=== PATIENT | female | born 1960 | race Caucasian/White ===

== ENCOUNTER 2019-10-08 17:44 | Inpatient (IN) | payer MEDICARE, OTHER ==
[~2019-10-08] VITALS: Ht 175.3 cm; Wt 84.4 kg
[~2019-10-08 17:44] MED LIST: ABILIFY5 MG PO; ASPIRIN81 MG PO; ATORVASTATIN CA10 MG PO; BRINTELLIX20 MG PO; DOCUSIL100 MG PO; ISOSORBIDE DINI30 MG PO; KEPPRA1000 MG PO; MINIPRESS1 MG PO; NEURONTIN100 MG PO; PEPCID40 MG PO; SINGULAIR10 MG PO; TOPAMAX25 MG PO; TOPROL XL25 MG PO
--- OUTSIDE RECORDS SUMMARY | 2019-10-08 17:46 | XMS ---
PreManage Notification: MARIA EVANS Security Asset Administrator Events No recent Security Events currently on file CRITERIA MET - [facility] Guidelines - History of Sepsis Dx - PDMP CARE PROVIDERS Vy Escobedo Service Greeter/Wet Pan Operator 07/20/2019-Current PHONE: [phone] RANCHO HART PHONE: [phone] Josey Case or Oil Seal Assembler Current Jose Chen PHONE: [phone] Vy Escobedo Primary Care 07/20/2019-Current PHONE: [phone] MARION HOLLOWAY Primary Care Current PHONE: Unknown Guidelines Source: [facility] Soo Delacruz Guidelines Date: 12/04/2018 Care Coordination: Currently engaged in mental health services with [employer].\T\nbsp; Please contact [employer] with mental health concerns.\T\nbsp; [place]ena [place]: [phone]\T\nbsp; [place]: [phone] Additional care guidelines exist for the following facilities: [facility] ( 01/21/2018 ) Ruth VISIT COUNT (12 MO.) [address] Anthony Tila TOTAL 11 NOTE: Visits indicate total known visits. 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 - Allergy status to sulfonamides status - Epilepsy, unsp, not intractable, without status epilepticus 06/12/2019 12:06 [facility] TYPE: Emergency DIAGNOSES: - LOW BLOOD PRESSURE CHEST PAIN - Generalized abdominal pain 05/09/2019 11:05 [facility] TYPE: Emergency DIAGNOSES: - Unspecified convulsions - SEIZURE 04/10/2019 15:16 [facility] TYPE: Emergency DIAGNOSES: - Headache - TIA 03/26/2019 12:17 [facility] TYPE: Emergency DIAGNOSES: - Headache - HEADACHE BLURRED VISION 03/10/2019 10:45 [facility] TYPE: Emergency DIAGNOSES: - Epilepsy, unsp, intractable, without status epilepticus - SEIZURE 03/03/2019 10:36 [facility] [place] TYPE: Emergency DIAGNOSES: - SEIZURE - Unspecified convulsions 02/17/2019 23:09 [facility] [place] TYPE: Emergency DIAGNOSES: - chest pain - Other chest pain 01/07/2019 15:36 [facility] [place] TYPE: Emergency DIAGNOSES: - dizzy seizure - Chest pain, unspecified - Unspecified convulsions 12/03/2018 14:22 [facility] [place] TYPE: Emergency DIAGNOSES: - Oth symptoms and signs involving the circ and resp systems - Nausea with vomiting, unspecified - Epilepsy, unsp, not intractable, without status epilepticus - CHEST PAIN - Other chest pain - Migraine w/o aura, not intractable, w/o status migrainosus INPATIENT VISIT TRACKING (12 MO.) No inpatient visits to display in this time frame [email or web address]
[2019-10-08] MEDS ORDERED: MUPIROCIN22 GM TOP (17:54)
[2019-10-08] MEDS ORDERED: PRAZOSIN HCL5 MG PO (17:55)
[2019-10-08] MEDS ORDERED: AMOX TR-K CLV1 EAC1 PO (17:56)
--- NOTE | 2019-10-08 21:30 | NUR ---
PATIENT ADMISSION COMPLETED. PATIENT OREINTED TO FLOOR, ROOM, AND CALL LIGHT. PATIENT DENIES ANY PAIN OR NAUSEA. PATIENTS ASSESMENT COMPLETED. PATIENT HAS RIGHT BOOT THAT IS TO BE WORN. PATIENT IS ON 2L VIA NC. PATIENT DENIES ANY COMMENTS, QUESTIONS OR CONCERNS. NO NEEDS NOTED. CALL LIGHT IN REACH.
--- NOTE | 2019-10-08 21:50 | NUR ---
PATIENTS EVENING MEDICATIONS GIVEN PER ORDER. PATIENT PROVIDED WITH ICE WATER. NO FURTHER NEEDS NOTED. CALL LIGHT IN REACH.
--- NOTE | 2019-10-08 23:30 | NUR ---
PATIENT IS RESTING IN BED WITH EYES CLOSED, RR 16. CALL LIGHT IN REACH.
--- NOTE | 2019-10-09 00:45 | NUR ---
PATIENT IS RESTING IN BED WITH EYES CLOSED, RR 15. CALL LIGHT IN REACH. REPORT GIVEN TO STACIA KUNZ.
--- NOTE | 2019-10-09 02:38 | NUR ---
resting, eyes closed, O2 in place, IVF infusing, call light at bedside
--- NOTE | 2019-10-09 04:52 | NUR ---
Has slept off andon this shift. O2 2LNC, lungs dim at base, no sob with exertion. Up to br with assist and fww/ R leg brace in place. NO c/o pain. no n/v, no loose stools this shift. Turns self in bed, IVf infusing w/o problems
--- NOTE | 2019-10-09 05:32 | NUR ---
DR WICK NOTIFIED OF PTS 101.6 ORAL TEMP, NO NEW ORDERS RECEIVED. PT WILL RECEIVED TYLENOL PREVIOUSLY ORDEREED
--- NOTE | 2019-10-09 05:43 | NUR ---
lab here drawing blood, pt coop. Medicated with tylenol 650mg po temp 101.6, 4 bedcovers removed but 1, procedure explained, pt aware. O2 in place, IVf infusing w/o problems.
--- NOTE | 2019-10-09 06:40 | NUR ---
TEMP DOWN TO 99.4
--- NOTE | 2019-10-09 07:17 | NUR ---
PT RESTING IN SEMIFOWLERS POSITION IN BED. PT ALERT AND ORIENTED. CALL LIGHT AND H2O IN REACH. PT DENIES NEEDS OR CONCERNS. BEDSIDE REPORT RECEIVED FROM ZE PALOMO.
--- NOTE | 2019-10-09 08:52 | NUR ---
PT RESTING SUPINE IN BED PT ALERT AND ORIENTED. CALL LIGHT AND H2O IN REACH. PT ASSESSMENT COMPLETED AND AM ASSESSMENT COMPLETED. NO NEEDS OR CONCERNS VOICED.
--- NOTE | 2019-10-09 10:42 | NUR ---
PT RESTING IN SEMIFOWLERS POSITION IN BED. PT ALERT AND ORIENTED. CALL LIGHT AND H2O IN REACH. NO NEEDS OR CONCERNS VOICED.
[2019-10-09] MEDS ORDERED: ATORVASTATIN CA40 MG PO (11:28)
[2019-10-09] MEDS ORDERED: METFORMIN HCL500 MG PO (11:29)
[2019-10-09] MEDS ORDERED: PRAZOSIN HCL1 MG PO (11:32)
[2019-10-09] MEDS ORDERED: VENTOLIN HFA18 GM INH (11:34)
[2019-10-09] MEDS ORDERED: ASPIR 8181 MG PO (11:57)
[2019-10-09] MEDS ORDERED: TYLENOL325 MG PO (12:42)
[2019-10-09] MEDS ORDERED: NITROSTAT0.4 MG SL (12:45)
[2019-10-09] MEDS ORDERED: PERCOCET 5-3251 EACH PO (12:47)
[2019-10-09] MEDS ORDERED: TIZANIDINE HCL2 MG PO (12:49)
--- NOTE | 2019-10-09 12:53 | NUR ---
MED REC COMPLETE
--- NOTE | 2019-10-09 13:40 | NUR ---
PT SLEEPING, WILL FOLLOW UP AGAIN
--- NOTE | 2019-10-09 14:02 | NUR ---
PT RESTING IN SEMIFOWLERS POSITION IN BED. PT ALERT AND ORIENTED. ASSESSMENT COMPLETED. PT DNEIES PAIN, NAUSEA OR SOB. CALL LIGHT AND H2O IN REACH. NO NEEDS OR CONCERNS VOICED.
--- NOTE | 2019-10-09 14:49 | NUR ---
Spoke with Magda. She is resting. States she lives at [facility]. Uses a walker, wc, and walking boot. Has a service dog. States she has a brother who lives out of town. Uses 022l at facility. Would like to dc to [facility] when she discharges. States she has all the DME she needs at this time.
--- NOTE | 2019-10-09 15:09 | NUR ---
PT RESTING SUPINE IN BED ALERT AND ORIENTED. PT REPORTS 8/10 BACK PAIN. PT STATES THIS IS CHRONIC ACHING LOW BACK PAIN. PT REQEUSTED AND RECEIVED PRN PO ANALGESIC WELL A WARM PACK. CALL LIGHT AND H2O IN REACH. NO FURTHER NEEDS OR CONCERNS VOICED.
--- NOTE | 2019-10-09 17:08 | NUR ---
PT RESTING IN SEMIFOWLERS POSITION IN BED. PT ALERT AND ORIENTED. CBG CHECKED. CALL LIGHT AND H2O IN REACH. PT APPEARS TO BE IN NO ACUTE DISTRESS. PT DENIES PAIN, SOB OR NAUSEA. NO NEEDS OR CONCERNS VOICED.
--- NOTE | 2019-10-09 18:00 | NUR ---
TEMP 101.7 PATIENT GIVEN 650MG OF PO TYLENOL. CALL TO DR. NEVAREZ TO UPDATE. PATIENT RESTING IN BED REPORTS, "I FEEL COLD."
--- NOTE | 2019-10-09 18:58 | NUR ---
PT WAS ASSISTED UP FROM COMMODE AND HAD AN UNSTEADY GAIT GETTING BACK TO BED AND FELT WARM. TEMP TAKEN AND FOUND TO BE 102.2, PRN PO IBUPROFEN ADMINISTERED. DR VILLATORO NOTIFIED OF S/SX'S AND OF VS'S. NO NEW ORDERS.
--- NOTE | 2019-10-09 20:32 | NUR ---
VITALS AND I&OS DONE AND CHARTED. FRESH ICE WATER AND ICE PACKS GIVEN. BEDSIDE TABLE AND CALL LIGHT IN REACH.
--- NOTE | 2019-10-09 20:48 | NUR ---
ice to back of neck, repositioned in bed. Lower lip open area healing, On room air, Lungs dim at bases, no sob at this time. multiple bruising in different stages of healing over arms. red apost over ankles, Wears R walking ortho boot when up. Turn self in bed
--- NOTE | 2019-10-10 00:38 | NUR ---
Resting, O2 in place, no resp distress. no further temp or c/o pain or diabetic s/sx. 2 SL intact, call light at bedside
--- NOTE | 2019-10-10 01:49 | NUR ---
Up to bsc, voided large amount of urine and had a medium formed bm, Back to bed, 1PA. R ortho boot on when transferring, off now. Tolerated well, no sob noted. O2 2L NC. moist non productive cough noted too. Tolerated well. Back to bed, repositions self in bed, call light at bedside.
--- NOTE | 2019-10-10 02:47 | NUR ---
C/O H/A AND FEELING WARM T 99.3, MEDICATED WITH MOTRIN 400MG PO C/O 8/10 H/A AND BACK PAIN. 1 BED COVER REMOVED, ENCOURAGED TO USE IS, DECLINED AT THIST TIME SHE HAS A H/A. TOLERATING FLUIDS, NO N/V
--- NOTE | 2019-10-10 04:32 | NUR ---
RESTING, O2 2L NC IN PLACE, SL X2 INTACT. NO DISTRESS, CALL LIGHT AT BEDSIDE
--- NOTE | 2019-10-10 05:50 | NUR ---
Pt temp 100, Tylenol 650mg po given. ice to axillary area and back of neck. Room temp down from 75 to 70 degrees. 2 Bedcovers removed, covered iwth light sheet. procedure explained to pt. stated understanding
--- NOTE | 2019-10-10 06:07 | NUR ---
Pt has slept off and on, Temp has been fluctuating between 99.3 at begining of shift up to 100.0 , received Tylenol, covers removed and room temp decreaed to 70 from 75. Pt working on IS. Tolerating fluids well. Up to bsc with 1PA, wears R ortho boot. unsteady gait. no sob with exertion noted, dry non procuctive cough prsent. O2 2L NC chronic in place. Lungs dim at bases Received Motrin x1 per c/o back/richardson pain, effective. 2SL patent. Pt Alert and oriented. bruising over body healing, scab forming over r lower lip. No seizure
--- NOTE | 2019-10-10 06:23 | NUR ---
While getting up from commode, commode arm gives way. Obtains a skin tear to right thumb approximately 1.5 cm by 0.5 cm. Site cleansed with chloraprep and steristrips placed over site.
--- NOTE | 2019-10-10 07:24 | NUR ---
PT RESTING SUPINE IN BED EYES CLOSED AND RESPIRATIONS EVEN AND UNLABORED. CALL LIGHT AND H2O IN REACH. NO NEEDS OR CONCERNS VOICED. REPORT RECEIVED FROM ZE PALOMO.
--- NOTE | 2019-10-10 08:30 | NUR ---
PT SITTING UP IN CHAIR ALERT AND EATING BREAKFAST. AM ASSESSMENT COMPLETED AND AM MEDS ADMINISTERED. CALL LIGHT AND H2O IN REACH. PT REPORTED 7/10 CHRONIC BACK PAIN; PRN PO ANALGESIC ADMINISTERED PER PT REQUEST. NO FURTHER NEEDS OR CONCERNS VOICED. PT AFEBRILE AT THIS TIME TEMP 98.2.
--- NOTE | 2019-10-10 11:03 | NUR ---
PT REPORTS PAIN TO BACK; PRN PO TYLENOL ADMINISTERED PER PT REQEUST. PT IN TO SEE PATIENT. NO FURTHER NEEDS OR CONCERNS VOICED.
--- NOTE | 2019-10-10 11:55 | NUR ---
PT RESTING SUPINE IN BED EYES CLOSED AND RESPIRATIONS EVEN AND UNLABORED ON 2LPNC. PT APPEARS TO BE SLEEPING COMFORTABLY.
--- NOTE | 2019-10-10 15:30 | NUR ---
PT RESTING ON RIGHT LATERAL SIDE WITH RESPIRATIONS EVEN AND UNLABORED. PT REPORT FEELING CHILLED AND GENERALIZED ACHING. PRN PO IBUPROFEN ADMINISTERED -SEE EMAR. CALL LIGHT AND H2O IN REACH. PT DENIES FURTHER NEEDS OR CONCERNS. TEMP TAKEN PRIOR TO RARE/ENDANGERED SPECIES SPECIALIST AND WAS 102.7 ORAL. EXTRA BLANKETS REMOVED, ENCOURAGED PT TO DRINK MORE FLUIDS AND TO USE IS. DR NEVAREZ NOTIFIED OF PT'S S/SX'S, NO NEW ORDERS AT THIS TIME.
--- NOTE | 2019-10-10 16:15 | NUR ---
PT REPORTS INCREASED PAIN TO BACK. NO PRN ANALGESICS CURRENTLY AVAILABLE. DR NEVAREZ NOTIFIED. NEW ORDER FOR PRN PO OXYCODONE X1 DOSE NOW. NO FURTHER NEEDS OR CONCERNS VOICED.
--- NOTE | 2019-10-10 16:54 | NUR ---
Pt off floor at this time to imaging for xrays.
--- NOTE | 2019-10-10 17:22 | NUR ---
PT BACK TO ROOM FORM IMAGING BY WC. PT UP TO CHAIR WITH DINNER. ICE PACKS FOR COMFORT TO BILAT AXILLA. CBG CHECKED AND 1 UNIT SS INSULIN ADMINISTERED PER PT REQUEST. NO FURTHER NEEDS OR CONCERNS VOICED. FIELD INTERVIEWER IN COMPLETING VS'S.
--- NOTE | 2019-10-10 19:31 | NUR ---
pt used call light to ask for assistance to the restroom. JASPER November and myself assisted pt to BSC. David appiled as she was up to the BSC. pt did not need anything further at this time.
--- NOTE | 2019-10-10 21:00 | NUR ---
ASSESSMENT COMPLETE, SCHEDULED MEDS GIVEN (SEE EMAR). PRN MOTRIN ALSO GIVEN FOR GENERALIZED BACK PAIN. PT REORIENTED TO PLACE AND EVENTS. VSS, PT ON 2LNC. NO DISTRESS NOTED AT THIS TIME, PT INTERACTIVE WITH STAFF. NO FURTHER NEEDS, CALL LIGHT IN REACH.
--- NOTE | 2019-10-10 23:19 | NUR ---
PT RESTING IN BED WITH EYES CLOSED. RESPIRATIONS EVEN AND UNLABORED, NO DISTRESS OR SIGNS OF PAIN NOTED. RR WNL, 2LNC IN PLACE. CALL LIGHT IN REACH.
--- NOTE | 2019-10-11 00:40 | NUR ---
HELPED PT TO THE BSC AND BACK TO BED. BEDSIDE TABLE AND CALL LIGHT IN REACH.
--- NOTE | 2019-10-11 02:13 | NUR ---
PT RESTING IN BED WITH EYES CLOSED. 2LNC IN PLACE, RR EVEN AND UNLABORED. NO DISTRESS NOTED. CALL LIGHT IN REACH.
--- NOTE | 2019-10-11 04:29 | NUR ---
ASSESSMENT COMPLETE, NO NEW CHANGES OR CONCERNS. PT SITTING IN BED, STATION AGENT NOVEMBER ASSISTED WITH BOOST. PT REPORTS FEELING SOB, 2LNC IN PLACE. O2 SAT LOW TO MID 90'S, HR WNL. HOB REMAINS ELEVATED. PT REPORTS 8/10 PAIN, PRN OXYCODONE ADMINSITERED (SEE EMAR). NO CHANGE IN RIGHT TOE APPEARANCE. NO FURTHER NEEDS, CALL LIGHT IN REACH.
--- NOTE | 2019-10-11 05:31 | NUR ---
ASSISTED RESEARCH AND EVALUATION ANALYST TO CHANGE pt. pt REPORTED 10/10 HEADACHE, SLIGHT TEMPERATURE. GAVE PRN TYLENOL (SEE MAR). PRIMARY RN UPDATED. CALL LIGHT WITHIN REACH.
--- NOTE | 2019-10-11 06:05 | NUR ---
PT CALLED TO USE [place] [facility] [place] WAS VERY WEAK AND SLOW MOVING. SHE VOIDED 900MLS OF URINE AND IS NOW BACK IN BED. REMOVED L WRIST IV AND PLACED PRESSURE WITH GAUZE AND COBAN IN PLACE. PT TOLERATED CALL AND CATH TIP INTACT. PT DENIES FURTHER NEEDS, CALL LIGHT IS CLOSE.
--- NOTE | 2019-10-11 06:50 | NUR ---
oral temp readings varies from 102-103. axillary temp of 99.3. temporal temp of 100.6. dr burroughs made aware as well as made aware of 0530 axillary temp. prn motrin given. no new orders.
--- NOTE | 2019-10-11 07:15 | NUR ---
PT RESTING SUPINE IN BED EYES CLOSED AND RESPIRATIONS EVEN AND UNLABORED. PT APPEARS TO BE SLEEPING COMFORTABLY. PE KEVINIDE REPORT PT REMAINS FEBRILE. ICE PACKS APPLIED TO BILAT AXILLAS FOR COMFORT. CALL LIGHT AND H2O IN REACH. PT ALSO PROVIDED WITH ICE WATER AND ICED TEA PER REQUEST. NO FURTHER NEEDS OR CONCERNS VOICED.
--- NOTE | 2019-10-11 09:45 | NUR ---
DR CARLOS WAS IN TO DISCUSS NEED FOR OUTPATIENT APPOINTMENT TO COMPLETE A PARTIAL TOE AMPUTATION TO RIGHT SECOND TOE. PT APPEARED TO TAKE THIS NEWS WELL STATING "I DON'T MIND IF YOU JUST TAKE THE WHOLE TOE OFF". CALL LIGHT AND H2O IN REACH.
--- NOTE | 2019-10-11 11:05 | NUR ---
PT SITTING UP IN CHAIR WATCHING TV. CALL LIGHT AND H2O IN REACH. PT DENIES NEEDS OR CONCERNS.
--- NOTE | 2019-10-11 14:20 | NUR ---
pt reports increased sharp pain to left lateral upper thigh area, pt denies ingury, no diformity, redness or swelling noted to sight and cms at baseline with some neuropathy to bilat le's. Call light and h2o in reach. No further needs or concerns voiced.
--- NOTE | 2019-10-11 15:06 | NUR ---
Pt reports 10/10 sharp pain to outer left later thigh. Dr Smith was informed of this, new verbal order for norco 5/325mg q6prn pain was ordered in addition to oxycodone q12 that pt takes chronicaly for back pain. No further orders received. prn po norco x2 tabs administered per pt request. call light and h2o in reach. No further needs or concerns voiced.
--- NOTE | 2019-10-11 19:20 | NUR ---
SHIFT REPORT RECIEVED FROM NEEMA KUNZ. PT RESTING IN BED, EYES CLOSED. CALL LIGHT IN REACH.
--- NOTE | 2019-10-11 20:21 | NUR ---
WITH THE HELP OF JASPER LOPEZ WE HELPED PT TO THE BSC AND BACK TO BED. PT ASKED FOR PAIN MEDICATION. I INFORMED HER RN MARTHA. BEDSIDE TABLE AND CALL LIGHT IN REACH.
--- NOTE | 2019-10-11 21:34 | NUR ---
ASSESSMENT COMPLETED. SCHEDULED MEDS PROVIDED.LUNG SOUNDS DIMINISHED. TYLENOL PROVIDED FOR FEVER. PT HAVING CRAMPS IN LEFT THIGH. WARM BLANKET AND HEAT PACK PROVIDED. REPOSITIONED WITH PILLOWS. ICE WATER PROVIDED. IV CDI, WNL, FLUSHED WELL. RT IN ROOM. NO THER NEEDS, CALL LIGHT IN REACH.
--- NOTE | 2019-10-11 22:13 | NUR ---
NOTIFIED OF FEVER AND INTERVENTIONS.
--- NOTE | 2019-10-11 22:30 | NUR ---
PT RESTING IN BED, EYES CLOSED. RR 18, EVEN, UNLABORED. CALL LIGHT IN REACH.
--- NOTE | 2019-10-11 22:59 | NUR ---
IV ABX COMPLETE, PT NOW SALINE LOCKED. SITE WNL, PUMP CLEARED. PRIMARY RN MARTHA MADE AWARE. CALL LIGHT IN REACH.
--- NOTE | 2019-10-12 01:00 | NUR ---
PT RESTING IN BED, EYES CLOSED. RR 16, EVEN, UNLABORED. CALL LIGHT IN REACH.
--- NOTE | 2019-10-12 02:50 | NUR ---
PT CALLS TO USE BSC. PT ASKS FOR BREATHING TX, RT NOTIFIED. ASSESSMENT COMPLETED. LUNG SOUNDS COURSE. CMS INTACT. RT IN ROOM. NO OTHER NEEDS.
--- NOTE | 2019-10-12 04:05 | NUR ---
prn pain medication given for 8/10 generalized pain. no further needs, call light in reach. primary rn maribel made aware.
--- NOTE | 2019-10-12 04:56 | NUR ---
PT SLEPT OFF AND ON THIS SHIFT. PT HAS REQUIRED PAIN MANAGEMENT FOR GENERAL PAIN AND LEG PAIN. PT HAD AN EPISODE OF A LEG CRAMP IN RIGHT FEMUR. PT TOLERATED FWW TRAN[place] [facility] [place] SPO2 DECREASED TO 89% AFTER TRANSFER BUT PT RETURNED TO AN SPO2 IN THE 90s SHORTLY AFTER. LUNG SOUNDS COURSE. FEVER AND PAIN WELL CONTROLLED WITH PRN MEDS. IV CDI, WNL, FLUSHED WELL. PT TOLERATED NC AND IV MEDS WELL. CMS INTACT.
--- NOTE | 2019-10-12 04:56 | NUR ---
PT RESTING IN BED, EYES CLOSED. RR 18, EVEN, UNLABORED. CALL LIGHT IN REACH.
--- NOTE | 2019-10-12 06:14 | NUR ---
PT RESTING IN BED, EYES CLOSED. RR 16, EVEN, UNLABORED. NC @ 2L. CALL LIGHT IN REACH.
--- NOTE | 2019-10-12 06:38 | NUR ---
ADMINISTERED TYLENOL FOR LEG PAIN. VS TAKEN BY RE HUTCHINSON AND SHE NOTIFIED PRIMARY RN OF PT'S TEMP OF 102.8. PT HAS FRESH ICEWATER AT BEDSIDE AND DENIES FURTHER NEEDS. CALL LIGHT IS CLOSE.
--- NOTE | 2019-10-12 07:14 | NUR ---
Report received from ZE Mora. Pt resting on left lateral side eyes closed and respirations even and unlabored on 2lpnc. Call light and h2o in reach. Pt appears to be sleeping comfortably.
--- NOTE | 2019-10-12 08:54 | NUR ---
PT WAS UP TO BSC WITH ASSISTANCE FROM JASPER BARBA. PT BACK TO BED AND ASSESSMENT COMPLETED. PT REPORTS NAUSEA AND LEFT KNEE AND LEFT LATERAL THIGH PAIN 9/10 SHARP. PRN PO ANALGESIC, IV ZOFRAN AND AM MEDS ADMINISTERED PER PT REQEUST. CALL LIGHT AND H2O IN REACH. FRESH ICE WATER PROVIDED. PT DNEIES FURTHER NEEDS OR CONCERNS. PT WAS SATTING HIN HIGH 80'S ON 2LPNC SO WAS ENCOURAGED TO COUGH DEEP BREATH USE IS 10X PER HOUR AND O2 TITRATED UP TO 3LPNC. WILL CTM.
--- NOTE | 2019-10-12 11:47 | NUR ---
PT RESTING IN BED EYES CLSOED AND RESPIRATIONS EVEN AND UNLABORED ON 3LPNC. PT APPEARS TO BE SLEEPING COMFORTABLY. CALL LIGHT AND H2O IN REACH.
--- NOTE | 2019-10-12 14:06 | NUR ---
PT ALERT AND ORIENTED RESTING IN SEMIFOWLERS POSITION IN BED. PT ASSESSMENT COMPLETED. PT REPORTS INCREASED PAIN TO LEFT HIP AND KNEE. PT REQUESTED AND RECEIVED PRN PO ANALGESIC. PT AFEBRILE, VSS ON 3LPNC. FRESH ICE WATER AND CALL LIGHT IN REACH.
--- NOTE | 2019-10-12 14:49 | NUR ---
PATIENT REFUSED HER SHOWER 2 XS AND SAID SHE WASNT FEELING WELL RN NOTIFIED. PATIENT ISNT EATTING WELL. ICE WATER FILL CALL LIGHT IN REACH.
--- NOTE | 2019-10-12 17:20 | NUR ---
PT UP TO CHAIR WATCHING TV. PT REPORTS 9/10 PAIN TO LEFT HIP, L LNEE AND BACK. PRN PO ANALGESICS ADMINISTERED. PT REMAINS AFEBRILE AT 98.5 (O). CALL LIGHT AND H2O IN REACH. PT DENIES FURTHER NEEDS OR CONCERNS.
--- NOTE | 2019-10-12 18:33 | NUR ---
PATIENT REFUSED TO EAT DINNER AND SHE SAID SHE WOULD DRING HER ENSURE LATER . PATIEN SEEM TO BE VERY TIRED TO DAY REFUSED SHOWERS. FRESH WATER GIVEN CALL LIGHT IN REACH
--- NOTE | 2019-10-12 19:20 | NUR ---
DR WU NOTIFIED OF LOW BP OF 91/47, PER DR NEVAREZ, ALMA DELIA, RN WAS NOTIFIED OF NEED FOR REPEAT BP IN ONE HOUR AND TO NOTIFY DR NEVAREZ IF BE REMAINS BELOW CALL PARAMETERS.
--- NOTE | 2019-10-12 19:25 | NUR ---
BEDSIDE REPORT RECEIVED FROM ZE BETHEA. pt AWAKE, RESTING IN BED. 3L OXYGEN BY NC IN PLACE. CALL LIGHT IN REACH. BED ALARM ON.
--- NOTE | 2019-10-12 22:05 | NUR ---
ROUNDED CHARGE. PATIENT IS RESTING IN BED. PATIENT DENIES ANY NEEDS. CALL LIGHT IN REACH.
--- NOTE | 2019-10-12 22:14 | NUR ---
BLOOD SUGAR DONE AND CHARTED. INFORMED ZE MENDEZ OF RESULTS. PT NEEDS NOTHING AT THIS TIME. CALL LIGHT AND BEDSIDE TABLE IN REACH.
--- NOTE | 2019-10-12 23:12 | NUR ---
PT ALERT, REPORTED PAIN 8/10 IN HER LEFT LEG AND BACK. PRN NORCO 5/325 AND IBUPROFEN WAS GIVEN WHOLE WITH WATER. ASKED TO TURN BRIGHT LIGHT OFF.
--- NOTE | 2019-10-13 00:34 | NUR ---
USES CALL LIGHT APPROPRIATE.
--- NOTE | 2019-10-13 03:21 | NUR ---
pt resting with her yes closed. Appears comfortable.
--- NOTE | 2019-10-13 05:11 | NUR ---
Pt was helped to the bed side commode, urinated and had small BM. VSS WNL, afebrile. Reported pain 8/10 in he left leg and low back. PRN medication was given. Pt bacj to bed, was repositioned to her right side. Hot packs were provided by nurse Flynn. Dim light is on in the room, bed in low position, call light in reach.
--- NOTE | 2019-10-13 05:16 | NUR ---
Pt alert, coopertive with all cares. Used her call light appropriate. VSS WNL, afebrile. Had small BM at the end of the shift. Reported pain 8/10 twice during this shift. PRN medciations were given twice with a good relief. Resident on 3L of O2, maintaning SpO2 91%-92%, heart rate is regular,no edema noted, lungs sound course crackles bilateraly. No cough noted during this shift. Sputum specimen still neded.
--- NOTE | 2019-10-13 07:27 | NUR ---
REPORT RECEIVED FROM RORY, Ame. PT RESTING IN BED WITH EYES CLOSED RESPIRATIONS EVEN AND UNLABORED. O2 AT 3L BY NC IN PLACE. BED RAILS UP. BED ALARM ON. CALL LIGHT WITHIN REACH. PT ALLOWED TO REST.
--- NOTE | 2019-10-13 08:04 | NUR ---
MORNING ASSESSMENT AND MEDICATION DUE. 2PA, FWW UP TO COMODE. PT VOIDS AND HAS SMALL BM. 2PA, FWW UP TO CHAIR FOR BREAKFAST. ASSESSMENT DONE. PT REPORTS 8/10 PAIN AND CRIES OUT AT TIMES COMPLAINGING ABOUT LOWER BACK AND LEFT HIP. PT REFUSES TO STAY IN CHAIR FOR BREAKFAST. LUNG SOUNDS COURSE, RT TO BEDSIDE FOR BREATHING TX. PT ABLE TO COUGH BUT WILL NOT COUGH UP SPUTUTM FOR SAMPLE. RIGHT TOE UNCHANGED. O2 IN PLACE AT 3L BY NC WITH O2 SATURATION OF 93%. MEDICATION GIVEN. 2PA, FWW BACK TO BED. NO ADDITIONAL REQUESTS OR COMPLAINTS AT THIS TIME. CALL LIGHT WITHIN REACH. BED ALARM ON.
--- NOTE | 2019-10-13 08:10 | NUR ---
PATIENT USING THE BASE COMMODE. RN IN ROOM. PATIENT BACKS TO CHAIR. TWO PERSON ASSISTING. LINENS CHANGED. CLEAN UP TABLES. SETS UP TABLE FOR BREAKFAST. PATIENT SAID THAT MAYBE SHE WILL TAKE A SHOWER LATER. CALL LIGHT WITHIN REACH. NO OTHER NEEDS AT THIS TIME
--- NOTE | 2019-10-13 09:12 | NUR ---
PATIENT RESTING IN BED. VITAL SIGNS AND I&O DONE. CALL LIGHT WITHIN REACH. NO OTHER NEEDS AT THIS TIME
[2019-10-13] MEDS ORDERED: AMOX TR-K CLV1 EAC1 PO (09:25)
--- NOTE | 2019-10-13 09:39 | NUR ---
CALLED [facility] TO LET THEM KNOW THEY WILL NEED TO BE IN TOUCH WITH DR RODRIGUEZ OFFICE IN REGARDS TO PT HAVING HER TOE AMPUTATED NEXT SUNDAY.
--- NOTE | 2019-10-13 09:50 | NUR ---
Notified by staff, Magda is discharging today. She will need portable 02 to dc to home. Spoke with Les from [facility] and he will bring portable tank in and take pt home on discharge.
--- NOTE | 2019-10-13 10:13 | NUR ---
THIS RN TO ROOM TO CHECK ON PT. PT PREPARING CLOTHES TO GET DRESSED. PT CONTINUES TO REPORT 8/10 PAIN. PT IS MOVING MORE EASILY IN BED, NO CRINGES OR CYRING NOTED. SEE MAR FOR ADDITIONAL MEDICAITON GIVEN. BED RAILS UP. CALL LIGHT WITHIN REACH. BED ALARM ON.
--- NOTE | 2019-10-13 10:30 | NUR ---
PT UP TO GET DRESSED WITH ASSISTANCE FROM JASPER. PIV DC'D BY JASPER DEL [place], WNL. TALISHA AND JESSIE APPLIED. PT ANTICIPATING DISCHRAGE. AWAITING CASE MANAGMENT ARRANGEMENTS. PT RESTING IN BED. CALL LIGHT WITHIN REACH. BED ALARM ON.
--- NOTE | 2019-10-13 10:59 | NUR ---
IV TAKEN OUT UPON RN REQUEST. CATH INTACT AND LOOKED GOODM RN NOTIFIED.
--- NOTE | 2019-10-13 11:40 | NUR ---
REPORT CALLED TO DESIRE FOR HEALING. REPORT GIVEN TO LESS, NURSE PRACTITIONER. QUESTIONS ASKED AND ANSWERED.
--- NOTE | 2019-10-13 11:46 | NUR ---
PT READY FOR TRANFER. DISCHRAGE INSTRUCTIONS REVIEWED WITH PT. PT VERBALIZES UNDERSTANDING OF INSTRUCTIONS. REPORT CALLED AND PACKET PREPARED TO BE SENT WITH TRANSPORT [facility]. [facility] CALLED AND WILL COME TO CLERK TELEGRAPH SERVICE PT. PT UPDATED ON TRANFER. OFFERED LUNCH WHILE WAITING. LUNCH ORDER CALLED.
--- NOTE | 2019-10-13 12:19 | NUR ---
REPEAT BLOOD GLUCOSE AFTER EATING AND DRINKING SOME JUICE IS 67
--- NOTE | 2019-10-13 12:24 | NUR ---
PATIENT JUST DRANK ABOUT 150ML OF APPLE JUICE.
--- NOTE | 2019-10-13 12:30 | NUR ---
PTS BLOOD SUGAR NOTED TO BE LOW. 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 YANIRA RN TO BEDSIDE. JUICE PROVIDED. SUGARS RECHECKED. YANIRA AT BEDSIDE. PT SIPPING ON JUICE. NO ADDITIONAL REQUESTS OR COMPLAINTS AT THIS TIME. CALL LIGHT WITHIN REACH.
--- NOTE | 2019-10-13 12:31 | NUR ---
DR NEVAREZ NOTIFIED ABOUT LOW BLOOD GLUCOSE LEVEL.
--- NOTE | 2019-10-13 12:46 | NUR ---
BLOOD GLUCOSE READING NOW 96. CONTINUES TO EAT SOME OF HER PEANUT BUTTER AND JELLY SANDWICH.
--- NOTE | 2019-10-13 14:01 | NUR ---
PATIENT RESTING IN BED. VITAL SIGNS AND I&O DONE. PATIENT DID NOT VOID DURING THIS PERIOD. RN NOTIFIED. CALL LIGHT WITHIN REACH. NO OTHER NEEDS AT THIS TIME
--- NOTE | 2019-10-13 14:05 | NUR ---
THIS RN TO ROOM TO CHECK ON PT. PT RESTING IN BED WITH EYES CLOSED, RESPIRATIONS EVEN AND UNLABORED. BED RAILS UP. CALL LIGHT WITHIN REACH. CONTINUE AWAITING TRANPORT [facility] FOR DISCHARGE.
--- NOTE | 2019-10-13 14:40 | NUR ---
PT CONTINUES RESTING WITH EYES CLOSED, NO APPARENT DISTRESS, RESPIRATIONS EVEN AND UNLABORED. O2 IN PLACE AT 3L BY NC. BED RAILS UP. CALL LIGHT WITHIN REACH.
--- NOTE | 2019-10-13 15:34 | NUR ---
PATIENT WHEELED OUT FOR DC. WORKER FROM FACILITY HERE TO PICK PATIENT UP.
== END 2019-10-13 15:16 | disposition home or self-care (01) | DRG 193 ==
LOC: ED 17:44 → MS 20:17
PROVIDERS: ADMIT Student in an Organized Health Care Education/Training Program
DX: J13 Pneumonia due to Streptococcus pneumoniae (principal); J96.01 Acute respiratory failure with hypoxia; G93.41 Metabolic encephalopathy; M86.171 Other acute osteomyelitis, right ankle and foot; J15.4 Pneumonia due to other streptococci; F20.9 Schizophrenia, unspecified; J45.909 Unspecified asthma, uncomplicated; G40.909 Epilepsy, unspecified, not intractable, without status epilepticus; I10 Essential (primary) hypertension; E78.5 Hyperlipidemia, unspecified; F43.10 Post-traumatic stress disorder, unspecified; L03.031 Cellulitis of right toe; E11.69 Type 2 diabetes mellitus with other specified complication; E11.621 Type 2 diabetes mellitus with foot ulcer; L97.514 Non-pressure chronic ulcer of other part of right foot with necrosis of bone; Z79.84 Long term (current) use of oral hypoglycemic drugs; Z99.81 Dependence on supplemental oxygen; Z79.82 Long term (current) use of aspirin; Z79.899 Other long term (current) drug therapy; Z88.2 Allergy status to sulfonamides; Z88.8 Allergy status to other drugs, medicaments and biological substances; Z88.1 Allergy status to other antibiotic agents; Z88.5 Allergy status to narcotic agent; Z89.422 Acquired absence of other left toe(s); Z79.891 Long term (current) use of opiate analgesic
CPT/HCPCS: 36415; 70450; 71045; 71046; 73660; 80048; 80053; 81001; 83605; 83735; 84484; 85025; 87502; 94640; 94760; 96361; 96365; 96375; 97110; 97116; 97162; 97165; 97535; 99285-25; J0456; J0696; J1650; J1815; J1953; J2405; J3370; J7030; J7060; J7121

== ENCOUNTER 2019-10-14 23:47 | Observation (INO) | payer MEDICARE, OTHER ==
[~2019-10-14] VITALS: Ht 175.3 cm; Wt 84.1 kg
[~2019-10-14 23:47] MED LIST changes: +AMOX TR-K CLV1 EAC1 PO; +ASPIR 8181 MG PO; +ATORVASTATIN CA40 MG PO; +METFORMIN HCL500 MG PO; +MUPIROCIN22 GM TOP; +NITROSTAT0.4 MG SL; +PERCOCET 5-3251 EACH PO; +PRAZOSIN HCL1 MG PO; +PRAZOSIN HCL5 MG PO; +TIZANIDINE HCL2 MG PO; +TYLENOL325 MG PO; +VENTOLIN HFA18 GM INH
--- OUTSIDE RECORDS SUMMARY | 2019-10-14 23:50 | XMS ---
PreManage Notification: MARIA EVANS Security Medical Office Manager Events No recent Security Events currently on file CRITERIA MET - [facility] - Has Care Guidelines - History of Sepsis Dx - PDMP - [facility] - 2 Visits in 30 Days CARE PROVIDERS Vy Escobedo Manuscripts Archivist/Wet And Dry Sugar Bin Operator 07/20/2019-Current PHONE: [phone] RANCHO HART PHONE: [phone] Josey Case or Promotions Producer Current Jose Chen PHONE: [phone] Vy Escobedo Primary Care 07/20/2019-Current PHONE: [phone] MARION HOLLOWAY Primary Care Current PHONE: Unknown Guidelines Source: [facility] Guidelines Date: 12/04/2018 Care Coordination: Currently engaged in mental health services with [facility].\T\nbsp; Please contact [facility] with mental health concerns.\T\nbsp; [facility]: [phone]\T\nbsp; [place]: [phone] Additional care guidelines exist for the following facilities: [facility] ( 01/21/2018 ) Ruth VISIT COUNT (12 MO.) 9 [employer] [address] Anthony Tila TOTAL 12 NOTE: Visits indicate total known visits. ED/UCC VISIT TRACKING (12 MO.) 10/14/2019 23:47 [facility] TYPE: Emergency COMPLAINT: - R FOOT PAIN 10/08/2019 17:44 [facility] TYPE: Emergency COMPLAINT: - UNRESPONSIVE 07/12/2019 19:21 [facility] TYPE: Emergency COMPLAINT: - SEIZURE DIAGNOSES: - Other [place] [facility] (current) drug therapy - Unspecified asthma, uncomplicated - Personal history of nicotine dependence - Allergy status to other antibiotic agents status - Allergy status to oth drug/meds/biol subst status - terminal make up operator (current) use of aspirin - Allergy status to sulfonamides status - Epilepsy, unsp, not intractable, without status epilepticus 06/12/2019 12:06 [facility] [place] TYPE: Emergency DIAGNOSES: - LOW BLOOD PRESSURE CHEST PAIN - Generalized abdominal pain 05/09/2019 11:05 [facility] [place] TYPE: Emergency DIAGNOSES: - Unspecified convulsions - SEIZURE 04/10/2019 15:16 [facility] [place] TYPE: Emergency DIAGNOSES: - Headache - TIA 03/26/2019 12:17 [facility] OR TYPE: Emergency DIAGNOSES: - Headache - HEADACHE BLURRED VISION 03/10/2019 10:45 [facility] [place] TYPE: Emergency DIAGNOSES: - Epilepsy, unsp, intractable, without status epilepticus - SEIZURE 03/03/2019 10:36 [facility] [place] TYPE: Emergency DIAGNOSES: - SEIZURE - Unspecified convulsions 02/17/2019 23:09 [facility] [place] TYPE: Emergency DIAGNOSES: - chest pain - Other chest pain 01/07/2019 15:36 [facility] [place] TYPE: Emergency DIAGNOSES: - dizzy seizure - Chest pain, unspecified - Unspecified convulsions 12/03/2018 14:22 [facility] [place] TYPE: Emergency DIAGNOSES: - Oth symptoms and signs involving the circ and resp systems - Nausea with vomiting, unspecified - Epilepsy, unsp, not intractable, without status epilepticus - CHEST PAIN - Other chest pain - Migraine w/o aura, not intractable, w/o status migrainosus INPATIENT VISIT TRACKING (12 MO.) 10/08/2019 20:17 [facility] TYPE: [facility] COMPLAINT: - PNEUMONIA DIAGNOSES: - Dependence on supplemental oxygen - Unspecified asthma, uncomplicated - Pneumonia due to other streptococci - Post-traumatic stress disorder, unspecified - 1 Type 2 diabetes mellitus with foot ulcer - 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 - Acquired absence of other left toe(s) - Epilepsy, unsp, not intractable, without status epilepticus - Hyperlipidemia, unspecified - Pneumonia due to Streptococcus pneumoniae - Allergy status to other antibiotic agents status - 1 Type 2 diabetes mellitus with other specified complication - Other acute osteomyelitis, right ankle and foot - Pneumonia due to Streptococcus pneumoniae - Schizophrenia, unspecified - Essential (primary) hypertension - Allergy status to other antibiotic agents status - Other acute osteomyelitis, right ankle and foot - 1 Type 2 diabetes mellitus with foot ulcer - terminal make up operator (current) use of oral hypoglycemic drugs - assisted (current) use of opiate analgesic - Dependence on supplemental oxygen - assisted (current) use of oral hypoglycemic drugs - Acute respiratory failure with hypoxia - Post-traumatic stress disorder, unspecified - terminal make up operator (current) use of aspirin - Acquired absence of other left toe(s) - terminal make up operator (current) use of aspirin - Pneumonia due to other streptococci - Allergy status to sulfonamides status - Allergy status to sulfonamides status - Metabolic encephalopathy - Hyperlipidemia, unspecified - Essential (primary) hypertension - Allergy status to narcotic agent status - 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 - 1 Type 2 diabetes mellitus with other specified complication - Other watermaster (current) drug therapy - Allergy status to oth drug/meds/biol subst status - Schizophrenia, unspecified - [place] [facility] [place] (current) drug therapy - Allergy status to narcotic agent status - Epilepsy, unsp, not intractable, without status epilepticus - assisted (current) use of opiate analgesic - Allergy status to oth drug/meds/biol subst status - Unspecified asthma, uncomplicated - Cellulitis of right toe - Metabolic encephalopathy - Cellulitis of right toe [email or web address]
--- NOTE | 2019-10-15 01:59 | NUR ---
REPORT RECEIVED FROM ZE MONROE IN ED.
--- NOTE | 2019-10-15 02:30 | NUR ---
pt [facility]. TRANSFERRED TO HOSPITAL BED WITH NURSING STAFF ASSSIT. INCONTINENT OF STOOL. ATTENDS CHANGED. C/O PAIN IN LEFT LEG WITH MOVEMENT. WARM BLANKET PROVIDED. VSS ON 4L OXYGEN BY OXYMASK, CPOX ON. SINUS RHYTHM ON TELE 8. LUNG SOUNDS COARSE THROUGHOUT ALL LOBES. CALL LIGHT PROVIDED TO pt. BED ALARM ON.
--- NOTE | 2019-10-15 02:48 | NUR ---
PT ADMITTED TO ROOM 119 FROM ED. ABLE TO SCOOT SELF OVER TO BED FROM STRETCHER WITH MIMINAL ASSISTANCE, NOTED TO BE INCONT BM, UNKNOWN BY PT. ON 4 L O2, SHE STATES SHE USES AT HER LONG TERM. IS A/O, RECENTLY DISCHARGED FROM THIS HOSPITAL THIS WEEK. LIVES AT [facility]. BED ALARM PLACED UNTIL DETERMINED IF SHE IS AWARE OF HER SAFETY NEEDS. IV INFUSING PER ORDER.
--- NOTE | 2019-10-15 03:50 | NUR ---
PULSE OXIMETER ALARMING. SPO2 87% ON 4L OXYGEN BY OXYMASK. TITRATED TO 5L OXYGEN BY OXYMASK, SPO2 INCREASES TO 90% AFTER TWO MINUTES. RT RIA NOW IN ROOM FOR SCHEDULED NEB TREATMENT. BED ALARM ON. CALL LIGHT IN REACH.
--- NOTE | 2019-10-15 04:10 | NUR ---
pt TITRATED TO 4L OXYGEN BY OXYMASK BY RT. SPO2 92%. BED ALARM NOW SOUNDING, pt DENIES PAIN AT THIS TIME. APPEARS CONFUSED, NOT ABLE TO CORRECTLY ANSWER . REORIENTATION PROVIDED, REQUESTING TO SLEEP. STATES SURGERY IS "TOMORROW MORNING". BED ALARM ON.
--- NOTE | 2019-10-15 05:31 | NUR ---
NEW ADMIT THIS SHIFT. BRIDGE ORDERS. pt NPO, POSSIBLE AMPUTATION W DR. FLORES RIGHT SECOND TOE TODAY. 4L OXYGEN BY OXYMASK IN PLACE. CPOX IN PLACE. SCHEDULED NEB TREATMENTS. LUNG SOUNDS COARSE THROUGHOUT ALL LOBES. CONGESTED COUGH. NOT OUT OF BED THIS SHIFT. BED ALARM ON, SOME CONFUSION UPON AWAKENING. APPEARS TO HAVE RESTED WELL.
--- NOTE | 2019-10-15 06:02 | NUR ---
CALL LIGHT ANSWERED. pt ALERT AND ORIENTED TO ALL AT THIS TIME. 4L OXYGEN BY OXYMASK IN PLACE, SPO2 92%. 2PA TO BSC FOR VOID AND BACK TO BED. VSS. DENIES SOB. DENIES PAIN. CALL LIGHT IN REACH. BED ALARM ON. IVF INFUSING WNL ORDERED.
--- NOTE | 2019-10-15 08:30 | NUR ---
PT IS ALERT, SITTING UP IN BED, MAINTAINING OXIMETER 96% WITH O2 4L/OXYMASK, LUNGS ARE COARSE WITH OCCASIONAL LOOSE COUGH, ASKING WHEN CAN SHE EAT, REMAINS NPO AT THIS TIME.
--- NOTE | 2019-10-15 10:31 | NUR ---
DR JOSEPH IN TO SEE PT, NEW ORDERS NOTED, BREAKFAST ORDER PLACED FOR PT, SURGERY IS ON HOLD AT THIS TIME.
--- NOTE | 2019-10-15 13:30 | NUR ---
Spoke with Magda. She states not feeling well. Has congested voice. Denies needs at this time. Lives at [facility]. Uses a walker, wc, and 02. 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 Les from [facility] is her primary contact. She has a brother who lives out of town.
--- NOTE | 2019-10-15 14:17 | NUR ---
PT5 REPORTS PAIN AT LEFT UPPER LEG, PERCOCET WAS GIVEN EARLIER AND NOT AVAILABLE AT THIS TIME. HOT PACK GIVEN, PT REQUEST TO USE BEDSIDE COMMODE, ONE PERSON ASSIST UP TO BEDSIDE COMMODE WITH FWW, 4L OXYGEN PER N.C. IN PLACE 90% SATURATION OXYGEN.
[2019-10-15] MEDS ORDERED: ARIPIPRAZOLE5 MG PO (15:21)
[2019-10-15] MEDS ORDERED: AMOX TR-K CLV1 EAC1 PO (15:32)
--- NOTE | 2019-10-15 15:51 | NUR ---
PT RESTING QUIETLY IN BED WITH WARM PACK TO HIP, RESP UNLABORED, NEEDS SUPERVISION TO KEEP O2 ON, CALL LIGHT IN EASY REACH.
--- NOTE | 2019-10-15 16:16 | NUR ---
Medications reconciled using patient MARS from facility
--- NOTE | 2019-10-15 16:57 | NUR ---
PT IS ALERT, IN BETTER SPIRITS THIS AFTERNOON, ORDERED CHEESEBURGER FOR DINNER, SCHEDULED MEDS GIVEN, IVF PATENT, WATCHING TV PROGRAM, DENIES FURTHER NEEDS.
--- NOTE | 2019-10-15 18:12 | NUR ---
REQUIRES CLOSE SUPERVISION TO REMIND TO KEEP OXYGEN IN PLACE, LUNGS REMAIN COURSE SOUNDING WITH OCCASIONAL LOOSE COUGH, SBA INTO BATHROOM TO VOID, SOB WITH MINIMAL EXHERTION, USING CALL LIGHT APPROP. REQUIRES PAIN MEDICATION FOR CHRONIC HIP AND LEG PAIN. SURGERY CANCELLED FOR TOE AMPUTATION.
--- NOTE | 2019-10-15 19:25 | NUR ---
SHIFT REPORT RECEIVED FROM JOHNNYNYUDAY PINEDA AT BEDSIDE. PT RESTING IN BED, 4LNC IN PLACE, CPOX ON. O2 SAT AND HR WNL. PT APPEARS COMFORTBALE, CALL LIGHT IN REACH, IV FLUIDS INFUSING, SITE WNL. BOARD UPDATED.
--- NOTE | 2019-10-15 20:15 | NUR ---
IN ROOM TO START VANCO. PT GRIMACING WHEN FLUSHING IV SITE, SMALL INFILTRATION NOTED. SITE DISCONTINUED BY THIS RN, CATHETER TIP INTACT. TWO UNSUCCESSFULL ATTEMPTS MADE BY FIELD SERVICE MANAGER. TWO TO THREE UNSUCCESSFUL ATTEMPTS MADE BY GASOLINE POWER SHOVEL OPERATOR. ASSESSMENT COMPLETE, SCHEDULED MEDS GIVEN. NO PAIN VERBALIZED BY PT AT THIS TIME, WILL MONITOR. VSS, PT ON 4LNC. AWAITING HOUSE FLOAT TO ATTEMPT NEW IV.
--- NOTE | 2019-10-15 20:56 | EKG ---
[facility] [address] [facility] [place], [place] [address] Signed Normal sinus rhythm Cannot rule out Anterior infarct , age undetermined Abnormal ECG No previous ECGs available Confirmed by LUPE JOSEPH MD ([id number]) on 10/15/2019 8:56:38 PM Electronically Signed By: LUPE JOSEPH MD 10/15/192055 PATIENT NAME: MARIA EVANS ULICES Electrocardiogram DATE OF : 56 PHYSICIAN: LUPE JOSEPH MD REPORT #: [id number] REPORT IS CONFIDENTIAL AND NOT TO BE RELEASED WITHOUT AUTHORIZATION
--- NOTE | 2019-10-15 21:17 | NUR ---
AMBULATED PT TO BATHROOM, SBA WITH FWW. CLEANED PT UP AFTERWARDS SHES WAS INCONT OF SMALL SOFT BM. VOIDED UNMEASURED VOIDE WELL INCONT VOID.
--- NOTE | 2019-10-15 22:00 | NUR ---
NEW IV SUCCESSFULLY PLACED BY ZE TYLER IN LEFT FOREARM, 22GAUGE. IV VANCO INFUSING PER ORDERS, SITE WNL. FLUSHES EASILY FLUSHED. PT REPORTING 8/10 PAIN, PRN PAIN MEDICATION ALSO GIVEN (SEE EMAR). NO FURTHER NEEDS, CALL LIGHT IN REACH. NO FURTHER NEEDS AT THIS TIME, CALL LIGHT IN REACH.
--- NOTE | 2019-10-16 00:05 | NUR ---
PT CALLED, SBA WITH FWW TO BATHROOM AND BACK. ALL PERSONAL SUPPLIES WITHIN REACH. LEFT LEG ELEVATED FOR COMFORT ON PILLOW. CALL LIGHT WITHIN REACH.
--- NOTE | 2019-10-16 01:02 | NUR ---
PT RESTING IN BED WITH EYES CLOSED. RR WNL, CPOX IN PLACE. 4LNC IN PLACE. O2 SAT AND HR WNL. NO DISTRESS NOTED, CALL LIGHT IN REACH.
--- NOTE | 2019-10-16 03:06 | NUR ---
PT UP TO BR AND BACK TO BED. PT COMPLAINS OF 10/10 IN RIGHT LEG. PRN PAIN MED PROVIDED. PT DECLINED WAR OR COLD PACKS. NO OTHER NEEDS, CALL LIGHT IN REACH.
--- NOTE | 2019-10-16 03:40 | NUR ---
VSS AND I&O'S COMPLETE. NO NEW CHANGES OR CONCERNS. PT ON 4LNC, CPOX IN PLACE. PT RECENTLY MEDICATED WITH PRN TYLENOL, REPORTING 7/10 PAIN. PT ASSISTED WITH REPOSITIONING. WILL MONITOR. IV FLUIDS INFUSING, SITE WNL. HOB ELEVATED, LUNG SOUNDS CONTINUE TO BE COURSE THROUGHOUT. CALL LIGHT IN REACH.
--- NOTE | 2019-10-16 04:10 | NUR ---
IV PUMP ALARMING . NEW BAG OF IV FLUIDS PROVIDED. PT RESTING WITH EYES CLOSED. RR EVEN, UNLABORED. CALL LIGHT IN REACH.
--- NOTE | 2019-10-16 05:43 | NUR ---
PT COMPLAINED PAIN LEFT LEG 10/10. MED WITH PRN PAIN MEDICATION
--- NOTE | 2019-10-16 07:41 | NUR ---
lance from pharmacy made aware of delay r/t pt's vanco. pharmacy to change time of vanco trough.
--- NOTE | 2019-10-16 09:00 | NUR ---
CONT. TO NEED REMINDING TO KEEP O2 ON, LUNGS WITH WHEEZES BILATERAL, OCCASIONAL LOOSE COUGH BUT HAVE NOT BEEN ABLE TO OBTAIN SPUTUM FOR LAB YET, NOT MUCH APPETITE, REFUSED ENSURE SHAKE, POSITIONED WITH PILLOWS TO SUPPORT HIP. WARM PACK IN PLACE.
--- NOTE | 2019-10-16 11:00 | NUR ---
IDT COMPLETED. PT WANTING TO RETURN TO [facility] ON DC. AMPUTATION ON LOWER EXTREMITY WILL BE RESCHEDULED PER DR ROONEY.
--- NOTE | 2019-10-16 11:00 | NUR ---
SPOKE WITH MARIA. SHE IS SITTING UP EATING. STATES FEELS SOMEWHAT BETTER TDOAY. IDT WAS COMPLETED, SEE NOTES.
--- NOTE | 2019-10-16 11:57 | NUR ---
GAVE PATIENT SHOWER WITH ASSISTANCE WITH STUDENT NURSE. MARGARET RODRIGUEZ
--- NOTE | 2019-10-16 12:37 | NUR ---
PT REPORTS NAUSEA, NO VOMITING, ZOFRAN 4MG IV GIVEN AT THIS TIME.
--- NOTE | 2019-10-16 15:16 | NUR ---
PT up to use restroom and back to her chair. got warm blanket. No further needs at this time. Call light within reach.
--- NOTE | 2019-10-16 17:45 | NUR ---
ENGINE ROOM OPERATOR TO THIS NURSE TO REPORT INFILTRATION OF IV SITE AFTER VANCO INFUSION. THIS NURSE TO BEDSIDE TO ASSESS SITE. SWELLING NOTED,. NO REDNESS, PT DENIES PAIN. STUDENT NURSE TO START NEW IV AND DC INFILTRATED IV. ICE APPLIED PER PHARMACIST SERENA RECOMMENDATION.
--- NOTE | 2019-10-16 19:07 | NUR ---
LEFT ARM SWELLING AND REDNESS MUCH IMPROVED, SWELLING IS MINIMAL AND REDNESS ALMOST COMPLETELY GONE, PT DENIES ANY PAIN.
--- NOTE | 2019-10-16 19:25 | NUR ---
SHIFT REPORT RECEIVED FROM JONH PINEDA AT BEDSIDE. PT RESTING IN BED, IV FLUIDS INFUSING, SITE WNL. PT DENIES NEEDS AT THIS TIME, CALL LIGHT IN REACH.
--- NOTE | 2019-10-16 19:33 | NUR ---
SHIFT SUMMARY PT UP AND MOVING AROUND WELL WITH ONE PERSON ASSIST. 2 LARGE INCONTINENT BM, ASSISTED TO SHOWER, MORE COHERENT TO TIME AND PLACE AND BREATHING SOUNDS MUCH BETTER AND MORE CLEAR. O2 IN 95 RANGE AT 2L NC. REFUSED TO EACH LUNCH AND ONLY HALF DINNER, OFFERED ENSURE AND REFUSED, RESTINF IN BED CALL LIGHT WITHIN REACH
--- NOTE | 2019-10-16 21:40 | NUR ---
ASSESSMENT COMPLETE, SCHEDULED MEDS GIVEN (SEE EMAR). CBG WNL, NO INSULIN SS REQUIRED. VSS, PT ON 2LNC, NO SOB OR DYSPNEA REPORTED. CPOX IN PLACE. IV ABX INFUSING, SITE WNL. BLOOD RETURN NOTED. PT REPORTS INCREASING PAIN, UNABLE TO GIVE REQUESTED PERCOCET, PRN TYLENOL OFFERED, DECLINED BY PT. NO FURTHER NEEDS, CALL LIGHT IN REACH.
--- NOTE | 2019-10-16 22:29 | NUR ---
PT CALLED REQUESTED A PAIN MEDICATION. ADMINISTERED PERCOCET FOR 7/10 PAIN LEFT LEG. FRESH ICE WATER GIVEN. CALL LIGHT WITHIN REACH. NO OTHER NEEDS AT THIS TIME.
--- NOTE | 2019-10-17 00:10 | NUR ---
VANCO INFUSING, IV SITE WNL. BLOOD RETURN NOTED. PT RESTING IN BED, NO NEEDS VERBALIZED. CALL LIGHT IN REACH.
--- NOTE | 2019-10-17 01:11 | NUR ---
IV VANCO COMPLETE, SITE WNL. BLOOD RETURN NOTED. IV FLUIDS INFUSING AT 100MLS/HR, SITE WNL. CALL LIGHT IN REACH.
--- NOTE | 2019-10-17 04:04 | NUR ---
ASSESSMENT COMPLETE, PT RESTING IN BED WITH EYES CLOSED. IV FLUIDS INFUSING AT 100MLS/HR, SITE WNL. PT APPEARS COMFORTABLE, NO SIGNS OF PAIN OR DISTRESS NOTED. CPOX IN PLACE, PT HAS 2LNC ON. O2 SAT LOW TO MID90'S. HR 50'S. CALL LIGHT IN REACH.
--- NOTE | 2019-10-17 04:35 | NUR ---
PHARMACY FAXED TO [facility].
--- NOTE | 2019-10-17 06:17 | NUR ---
pt called, assissted to br with fww. denies needs
--- NOTE | 2019-10-17 06:55 | NUR ---
prn pain medication given for 7/10 left knee/leg pain (see emar). no further needs, call light in reach.
--- NOTE | 2019-10-17 07:28 | NUR ---
RECIEVED BEDSIDE REPORT FROM ZE ISLAS WITH STUDENT NURSE SHAHIDA. PT IS AWAKE AND ALERT IN BED. FORGETFUL. R BOOT IN ROOM FOR AMBULATION. IMPULSIVE DURING DAY. CHRONIC O2 AT 2L.
[2019-10-17] MEDS ORDERED: SUPRAX400 M1 PO (10:31)
[2019-10-17] MEDS ORDERED: DOXYCYCLINE MO100 MG PO (10:32)
--- NOTE | 2019-10-17 10:39 | NUR ---
PT IS VERY ANXIOUS, WANTS TO GO HOME TO HER DOG. DR JOSEPH HAS DISCHARGED PT, GETTING PAPERWORK COMPLETED. STUDENT NURSE IS DRESSING PT. PER DR JOSEPH'S VERBAL ORDER, OK TO ADVANCE [facility] INFUSION TO GO IN OVER 30 MIN.
--- NOTE | 2019-10-17 10:45 | NUR ---
CALL TO DR. FLORES'S OFFICE TO NOTIFY THEM THAT PATIENT IS RETURNING HOME TODAY.
--- NOTE | 2019-10-17 11:34 | NUR ---
Spoke with pt. She is wanting to go home. Misses her dog. DC orders were written attempted to contact [facility],phone busy. Notified by RN she spoke with Les and called report. Nurse will set up transportation.
--- NOTE | 2019-10-17 11:49 | NUR ---
CALLED NURSING FACILITY AND GAVE REPORT ON PT DISCHARGE. EXPLAINED NEW MEDICATION, LAST BM, LAST VITALS, AND FOLLOW UP APPOINTMENTS. PT SITTING IN CHAIR READY TO GO AFTER RIDE IS ARRANGED, IV DISCONTINUED AND ACETOMENOPHEN ADMINISTERED. NO OTHER NEEDS AT THIS TIME. CALL LIGHT WITHIN REACH.
== END 2019-10-17 12:20 | disposition home or self-care (01) ==
LOC: ED 23:47 → MS 23:48
PROVIDERS: ADMIT Internal Medicine
DX: J18.9 Pneumonia, unspecified organism (principal); J96.21 Acute and chronic respiratory failure with hypoxia; J45.909 Unspecified asthma, uncomplicated; M25.562 Pain in left knee; M86.9 Osteomyelitis, unspecified; I25.10 Atherosclerotic heart disease of native coronary artery without angina pectoris; E11.9 Type 2 diabetes mellitus without complications; E78.5 Hyperlipidemia, unspecified; K21.9 Gastro-esophageal reflux disease without esophagitis; G40.909 Epilepsy, unspecified, not intractable, without status epilepticus; F39 Unspecified mood [affective] disorder; Z88.2 Allergy status to sulfonamides; Z88.8 Allergy status to other drugs, medicaments and biological substances; Z91.041 Radiographic dye allergy status; Z88.1 Allergy status to other antibiotic agents; Z79.899 Other long term (current) drug therapy; Z79.82 Long term (current) use of aspirin; F17.200 Nicotine dependence, unspecified, uncomplicated; Z87.891 Personal history of nicotine dependence; Z79.84 Long term (current) use of oral hypoglycemic drugs
CPT/HCPCS: 36415; 71045; 73560; 80048; 80053; 80202; 83735; 84484; 85025; 87070; 87205; 93005; 93010; 93971; 94640; 94667; 94668; 94762; 96372; 96375; 96376; 97162; 97165; 99285-25; G0378; J0692; J1650; J1815; J2270; J2405; J2930; J3370; J7060; J7121

== ENCOUNTER 2020-01-22 14:33 | Emergency (ER) | payer MEDICARE, OTHER ==
[~2020-01-22] VITALS: Ht 175.3 cm; Wt 68.0 kg
[~2020-01-22 14:33] MED LIST changes: +ARIPIPRAZOLE5 MG PO; +DICLOXACILLIN500 MG PO; +DOXYCYCLINE MO100 MG PO; +SUPRAX400 M1 PO; +ZOFRAN4 MG PO
--- OUTSIDE RECORDS SUMMARY | 2020-01-22 14:36 | XMS ---
PreManage Notification: MARIA EVANS Security Digital Campaign Manager Events No recent Security Events currently on file CRITERIA MET - [facility] - Has Care Guidelines - History of Sepsis Dx - PDMP CARE PROVIDERS AMIE [facility] Current PHONE: [phone] Elliot Morocho Meal Cooker/Market Development Executive 07/20/2019-Current PHONE: [phone] DONA ZAPATA Internal Medicine: Pulmonary Disease 10/15/2019-Current PHONE: Unknown Guidelines Source: [facility] [place] Guidelines Date: 12/04/2018 Care Coordination: Currently engaged in mental health services with [facility].\T\nbsp; Please contact [facility] with mental health concerns.\T\nbsp; Heena Pendleton: [phone]\T\nbsp; Rekha: [phone] Additional care guidelines exist for the following facilities: [facility] ( 01/21/2018 ) Care History Medical/Surgical 10/15/2019 [facility] - Patient is currently established with [facility]. If patient is seen in the ED during business hours. Please contact CHWs at [facility]. Care Recommendation: If this patient has had 5 or more Emergency Department visits in the last 12 months.\T\nbsp; Patient will require education on the scope and purpose of the ED as an acute care provider not a Primary Care Provider and should not be utilized for chronic conditions.\T\nbsp; These are guidelines and the provider should exercise clinical judgment when providing care. E.D. VISIT COUNT (12 MO.) 7 [facility] 5 [facility]. TOTAL 12 NOTE: Visits indicate total known visits. 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 - Diarrhea, unspecified - Unspecified asthma, uncomplicated - Epilepsy, unspecified, not intractable, without status epilep - Allergy status to sulfonamides status - FPC (current) use of aspirin - Other chcf (current) drug therapy - Allergy status to other drugs, medicaments and biological sub - Allergy status to narcotic agent status - Chest pain, unspecified - Allergy status to other antibiotic agents status 10/14/2019 23:47 [facility] [place] TYPE: Emergency COMPLAINT: - R FOOT PAIN 10/08/2019 17:44 [facility] [place] TYPE: Emergency COMPLAINT: - UNRESPONSIVE 07/12/2019 19:21 [facility] [place] TYPE: Emergency COMPLAINT: - SEIZURE DIAGNOSES: - Other chcf (current) drug therapy - Unspecified asthma, uncomplicated - Personal history of nicotine dependence - Allergy status to other antibiotic agents status - Allergy status to other drugs, medicaments and biological sub - FPC (current) use of aspirin - Allergy status to sulfonamides status - Epilepsy, unspecified, not intractable, without status epilep 06/12/2019 12:06 [facility] [place] TYPE: Emergency DIAGNOSES: - LOW BLOOD PRESSURE CHEST PAIN - Generalized abdominal pain 05/09/2019 11:05 [facility] [place] TYPE: Emergency DIAGNOSES: - Unspecified convulsions - SEIZURE 04/10/2019 15:16 [facility] [place] TYPE: Emergency DIAGNOSES: - Headache - TIA 03/26/2019 12:17 [facility] [place] TYPE: Emergency DIAGNOSES: - Headache - HEADACHE BLURRED VISION 03/10/2019 10:45 [facility] [place] TYPE: Emergency DIAGNOSES: - Epilepsy, unspecified, intractable, without status epilepticu - SEIZURE 03/03/2019 10:36 [facility] [place] TYPE: Emergency DIAGNOSES: - SEIZURE - Unspecified convulsions 02/17/2019 23:09 [facility] [place] TYPE: Emergency DIAGNOSES: - chest pain - Other chest pain INPATIENT VISIT TRACKING (12 MO.) 10/14/2019 23:48 [facility] [place] TYPE: Observation COMPLAINT: - PNEUMONIA DIAGNOSES: - Allergy status to other drugs, medicaments and biological sub - Epilepsy, unspecified, not intractable, without status epilep - Pain in left knee - FPC (current) use of oral hypoglycemic drugs - Allergy status to other antibiotic agents status - Radiographic dye allergy status - Acute and chronic respiratory failure with hypoxia - Atherosclerotic heart disease of [place] coronary artery witho - Hyperlipidemia, unspecified - Personal history of nicotine dependence - Unspecified asthma, uncomplicated - Gastro-esophageal reflux disease without esophagitis - Pneumonia, unspecified organism - Pain in left leg - Allergy status to sulfonamides status - Nicotine dependence, unspecified, uncomplicated - Osteomyelitis, unspecified - intermediate project manager (current) use of aspirin - Other chcf (current) drug therapy - Unspecified mood [affective] disorder - Type 2 diabetes mellitus without complications 10/08/2019 20:[address] [facility] [place] TYPE: Medical Surgical COMPLAINT: - PNEUMONIA DIAGNOSES: - Dependence on supplemental oxygen - Unspecified asthma, uncomplicated - Pneumonia due to other streptococci - Post-traumatic stress disorder, unspecified - Type 2 diabetes mellitus with foot ulcer - Non-pressure chronic ulcer of other part of right foot with n - Acquired absence of other left toe(s) - Epilepsy, unspecified, not intractable, without status epilep - Hyperlipidemia, unspecified - Pneumonia due to Streptococcus pneumoniae - Allergy status to other antibiotic agents status - Type 2 diabetes mellitus with other specified complication - Other acute osteomyelitis, right ankle and foot - Pneumonia due to Streptococcus pneumoniae - Schizophrenia, unspecified - Essential (primary) hypertension - Allergy status to other antibiotic agents status - Other acute osteomyelitis, right ankle and foot - Type 2 diabetes mellitus with foot ulcer - intermediate project manager (current) use of oral hypoglycemic drugs - intermediate project manager (current) use of opiate analgesic - Dependence on supplemental oxygen - FPC (current) use of oral hypoglycemic drugs - Acute respiratory failure with hypoxia - Post-traumatic stress disorder, unspecified - FPC (current) use of aspirin - Acquired absence of other left toe(s) - FPC (current) use of aspirin - Pneumonia due to other streptococci - Allergy status to sulfonamides status - Allergy status to sulfonamides status - Metabolic encephalopathy - Hyperlipidemia, unspecified - Essential (primary) hypertension - Allergy status to narcotic agent status - Non-pressure chronic ulcer of other part of right foot with n - Type 2 diabetes mellitus with other specified complication - Other chcf (current) drug therapy - Allergy status to other drugs, medicaments and biological sub - Schizophrenia, unspecified - Other chcf (current) drug therapy - Allergy status to narcotic agent status - Epilepsy, unspecified, not intractable, without status epilep - FPC (current) use of opiate analgesic - Allergy status to other drugs, medicaments and biological sub - Unspecified asthma, uncomplicated - Cellulitis of right toe - Metabolic encephalopathy - Cellulitis of right toe [email or web address]
[2020-01-22] MEDS ORDERED: ARIPIPRAZOLE10 MG PO (14:58)
[2020-01-22] MEDS ORDERED: LIPITOR40 MG PO (14:59)
[2020-01-22] MEDS ORDERED: BRINTELLIX20 MG PO (15:06)
[2020-01-22] MEDS ORDERED: GABAPENTIN600 MG PO (15:07)
[2020-01-22] MEDS ORDERED: CALCIUM ANTACI PO (15:10)
[2020-01-22] MEDS ORDERED: HYDROXYZINE HCL25 MG PO (15:11)
[2020-01-22] MEDS ORDERED: NITROGLYCERIN0.4 MG SL (15:12)
[2020-01-22] MEDS ORDERED: ONDANSETRON HCL4 MG PO (15:12)
== END 2020-01-22 17:30 | disposition home or self-care (01) ==
LOC: ED 14:33
DX: E87.1 Hypo-osmolality and hyponatremia (principal); J45.909 Unspecified asthma, uncomplicated; G40.909 Epilepsy, unspecified, not intractable, without status epilepticus; Z88.2 Allergy status to sulfonamides; Z91.09 Other allergy status, other than to drugs and biological substances; Z88.8 Allergy status to other drugs, medicaments and biological substances; Z88.1 Allergy status to other antibiotic agents; Z79.899 Other long term (current) drug therapy; Z79.82 Long term (current) use of aspirin; W19.XXXA Unspecified fall, initial encounter
CPT/HCPCS: 70450; 72125; 80048; 85025; 99285-25

== ENCOUNTER 2020-04-19 16:21 | Inpatient (IN) | payer MEDICARE, OTHER ==
[~2020-04-19] VITALS: Ht 172.7 cm; Wt 50.6 kg
[~2020-04-19 16:21] MED LIST changes: +ARIPIPRAZOLE10 MG PO; +BRINTELLIX20 MG PT; +CALCIUM ANTACI200 MG PT; +HYDROXYZINE HCL25 MG PT; -KEPPRA1000 MG PO; +KEPPRA1000 MG PT; +LIPITOR40 MG PT; +NEURONTIN300 MG PT; +NITROGLYCERIN0.4 MG SL; +ONDANSETRON HCL4 MG PO; -PEPCID40 MG PO; +PEPCID40 MG PT; -SINGULAIR10 MG PO; +SINGULAIR10 MG PT; -TOPAMAX25 MG PO; +TOPAMAX25 MG PT; -TOPROL XL25 MG PO; +TOPROL XL25 MG PT; -TYLENOL325 MG PO; +TYLENOL325 MG PT
--- OUTSIDE RECORDS SUMMARY | 2020-04-19 16:24 | XMS ---
PreManage Notification: MARIA EVANS Security Hardscape Foreman Events No recent Security Events currently on file CRITERIA MET - [facility] - Has Care Guidelines - History of Sepsis Dx - PDMP CARE PROVIDERS AMIE [facility] Current PHONE: [phone] Kofi Dubose Coding Compliance Auditor/Inventory Worker 07/20/2019-Current PHONE: [phone] DONA ZAPATA Internal Medicine: Pulmonary Disease 10/15/2019-Current PHONE: Unknown Guidelines Source: [facility] [place] Guidelines Date: 12/04/2018 Care Coordination: Currently engaged in mental health services with [facility].\T\nbsp; Please contact [facility] with mental health concerns.\T\nbsp; Heena Pendleton: [phone]\T\nbsp; Rekha: [phone] Additional care guidelines exist for the following facilities: [facility] ( 01/21/2018 ) Care History Medical/Surgical 01/23/2020 [facility] Patient has scheduled ED follow up apt with PCP 01/28/2020 at 2:40pm. 10/15/2019 [facility] - Patient is currently established with [facility]. If patient is seen in the ED during business hours. Please contact CHWs at [facility]. Care Recommendation: If this patient has had [...] providing care. E.D. VISIT COUNT (12 MO.) 2 [facility] [address] [facility]. TOTAL 8 NOTE: Visits indicate total known visits. ED/UCC VISIT TRACKING (12 MO.) 04/19/2020 16:22 [facility] TYPE: Emergency COMPLAINT: - FAILURE TO THRIVE 01/22/2020 14:33 [facility] [place] TYPE: Emergency COMPLAINT: - FALL DIAGNOSES: - Hypo-osmolality and hyponatremia - Allergy status to other drugs, medicaments and biological sub - Unspecified asthma, uncomplicated - Abrasion of other part of head, initial encounter - Other allergy status, other than to drugs and biological subs - Allergy status to other antibiotic agents status - Unspecified fall, initial encounter - terminal make up operator (current) use of aspirin - Epilepsy, unspecified, not intractable, without status epilep - 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 - Allergy status to sulfonamides status 10/31/2019 17:21 [facility] [place] TYPE: Emergency COMPLAINT: - CHEST PAIN DIAGNOSES: - terminal make up operator (current) use of oral hypoglycemic drugs - Diarrhea, unspecified - Unspecified asthma, uncomplicated - Epilepsy, unspecified, not intractable, without status epilep - Allergy status to sulfonamides status - terminal make up operator (current) use of aspirin - Other mcc (current) drug therapy - Allergy status to [...] Emergency COMPLAINT: - SEIZURE DIAGNOSES: - Other mcc (current) drug therapy - Unspecified asthma, uncomplicated - Personal history of nicotine dependence - Allergy status to other antibiotic agents status - Allergy status to other drugs, medicaments and biological sub - terminal make up operator (current) use of aspirin - Allergy status to sulfonamides status - Epilepsy, unspecified, not intractable, without status epilep 06/12/2019 12:06 [facility] [place] TYPE: Emergency DIAGNOSES: - LOW BLOOD PRESSURE CHEST PAIN - Generalized abdominal pain 05/09/2019 11:05 [facility] [place] TYPE: Emergency DIAGNOSES: - Unspecified convulsions - SEIZURE INPATIENT VISIT TRACKING (12 MO.) 10/14/2019 23:48 [facility] [place] TYPE: Observation COMPLAINT: - PNEUMONIA DIAGNOSES: - Allergy status to other drugs, medicaments and biological sub - Epilepsy, unspecified, not intractable, without status epilep - Pain in left knee - terminal make up operator (current) use of oral hypoglycemic drugs - Allergy status to other antibiotic agents status - Radiographic dye allergy status - Acute and chronic respiratory failure with hypoxia - Atherosclerotic heart disease of [place] coronary artery witho - Hyperlipidemia, unspecified - Personal history of nicotine dependence - Unspecified asthma, uncomplicated - Gastro-esophageal reflux disease without esophagitis - Pneumonia, unspecified organism - Pain in left leg - Allergy status to sulfonamides status - Nicotine dependence, unspecified, uncomplicated - Osteomyelitis, unspecified - senior living (current) use of aspirin - Other mcc (current) drug therapy - Unspecified mood [affective] [...] (current) use of oral hypoglycemic drugs - terminal make up operator (current) use of opiate analgesic - Dependence on supplemental oxygen - senior living (current) use of oral hypoglycemic drugs - Acute respiratory failure with hypoxia - Post-traumatic stress disorder, unspecified - senior living (current) use of aspirin - Acquired absence [...] mellitus with other specified complication - Other mcc (current) drug therapy - Allergy status to other drugs, medicaments and biological sub - Schizophrenia, unspecified - Other mcc (current) drug therapy - Allergy status to narcotic agent status - Epilepsy, unspecified, not intractable, without status epilep - senior living (current) use of opiate analgesic - Allergy status to other drugs, medicaments and biological sub - Unspecified asthma, uncomplicated - Cellulitis of right toe - Metabolic encephalopathy - Cellulitis of right toe [email or web address]
[2020-04-19] MEDS ORDERED: ABILIFY10 MG PT (17:36)
--- NOTE | 2020-04-19 20:08 | EKG ---
[facility] [address] [facility] [facility] [place], [place] [address] Signed Normal sinus rhythm Anteroseptal infarct (cited on or before 15-OCT-2019) Abnormal ECG When compared with ECG of 31-OCT-2019 17:27, No significant change was found Confirmed by MONTRELL WICK DO ([id number]) on 04/19/2020 8:08:04 PM Electronically Signed By: MONTRELL WICK DO 04/19/20 2008 PATIENT NAME: MARIA EVANS Electrocardiogram DATE OF : 56 PHYSICIAN: MONTRELL WICK DO REPORT #: [id number] REPORT IS CONFIDENTIAL AND NOT TO BE RELEASED WITHOUT AUTHORIZATION
[2020-04-20] MEDS ORDERED: ONDANSETRON HCL4 MG PT (14:01)
--- NOTE | 2020-04-25 11:20 | CONS ---
[facility] [address] [place], [place] [address] Signed DATE OF CONSULTATION: 04/23/2020 REQUESTING PHYSICIAN: Dr. Smith ADDITIONAL ADMITTING PHYSICIAN: Dr. Joseph (April 19, 2020). PROBLEM: Chronic persistent aspiration, consideration for PEG feeding tube. HISTORY OF PRESENT ILLNESS: This 59-year-old white woman looks vastly older than her stated age. She is a patient of Dr. Delacruz. The patient is noted to have a 60 pounds weight loss over the past six months. She was referred from Dr. Delacruz's office directly to the emergency room with inability or unwillingness to eat. She was evaluated by Dr. Hall, whose evaluation showed her to be markedly debilitated. A CT scan was obtained, which showed no intraabdominal or pulmonary problems. Evaluation in the emergency room included sedimentation rate, which was 84. The patient was a very poor historian, unable to accurately give any accounting of her issues. The patient does have underlying coronary artery disease, COPD, asthma, gastroesophageal reflux, type 2 diabetes, hyperlipidemia, seizure disorder, and depression. The patient was also noted to have osteomyelitis of her foot eight months previously. She quit smoking three years ago and does not drink alcohol. She was living at an extended care facility ([facility] The patient records indicated DNR status and a son previously designated as her [id number] (Philip Rodarte, phone # ), who wassaid to be but later noted he has had no contact with her since 1995 and no interest in serving in a journalism internship or advisory role. On that basis, the patient has no [id number] on our record that we are aware of as an institution. The [facility] surely has more information, I am sure. The patient was considered to have profound "[id number]" and was admitted to the hospital under the direction of Dr. Joseph. An EKG showed septal Q-waves, but no acute ischemia and evaluation showed white count of 11,000 with a normal H and H. CMP, hypokalemia/hypernatremia, normal creatinine, and troponin elevated at 0.07. Review of records show that in fact her next-of-kin (brother) has not seen the patient in over 14 years and refused any participation in medical decision making for her. Since her admission, she was given intravenous fluids and had variable times of delirium considered, essentially metabolic encephalopathy. Care was assumed by Dr. Ozuna, and most recently by Dr. Smith. During the course of her hospitalization thus far, she was noted to have urinary tract infection with urine cultures growing E coli, likely related Electronically Signed By: MARIA DEE MD 04/25/20 1120 PATIENT NAME: MARIA EVANS CONSULTATION DATE OF : 56 REPORT #: [id number] PHYSICIAN: MARIA DEE MD PCP: BREANNA DELACRUZ MD REPORT IS CONFIDENTIAL AND NOT TO BE RELEASED WITHOUT AUTHORIZATION [address] [address] Signed to urinary retention. She now has a Flynn catheter in place. She was noted also to have a dilated esophagus, with reported difficulty swallowing and the associated weight loss as noted. CT scan showed no sign of obstructing mass. Barium swallow was performed, which showed no obstruction or dysmotility problem, but marked aspiration of contrast into the tracheobronchial tree. She was noted to have had multiple decubitus ulcers sustained while at the extended care facility. The elevated troponin level was considered to be inconsequential, not associated with clinical symptoms of any sort. The patient has had improvement of her overall mentation and now does wish to have full care and treatment. On the basis of her aspiration, her weight loss and so forth, consideration has been made for percutaneous endoscopic gastrostomy feeding tube. I am here on that basis primarily. The patient tells me she has had no abdominal surgery in the past and denies knowing any specific gastrointestinal problems other than her heartburn problem. She denies dysphagia, has had no hematemesis or blood per rectum so far as could be told. PHYSICAL EXAMINATION: GENERAL: An interesting, debilitated 59-year-old white woman, who looks at least 78 years old to my amazement. HEENT: She is edentulous. NECK: Trachea is midline. CHEST: Shows normal respiratory excursion. She has appearance of chronic pulmonary insufficiency. ABDOMEN: Soft and flat. Surprisingly, there are no upper abdominal incisions or scars. EXTREMITIES: Show ecchymotic changes, but no sign of edema. LABORATORY STUDIES: On April 21 showed white count of 11.0, hematocrit 29.4, and platelets 451,000. COVID test negative collected on April 19, 2020. ASSESSMENT: The patient has numerous problems currently. She is cachectic and has profound aspiration-type symptoms and is considered unlikely to tolerate oral intake of any sort as she will likely aspirate causing worsened pneumonia.... this is in addition to her numerous comorbidities. Consideration is now made for feeding tube on that basis. I believe that a PEG tube would be reasonably possible and possibly quite helpful to her if the goal of therapy is to improve her nutrition by enteral feeding. She has already been in an extended care facility, but unfortunately has developed a fair amount of sacral pressure sores of the sacrum. Electronically Signed By: MARIA DEE MD 04/25/20 1120 PATIENT NAME: MARIA EVANS CONSULTATION DATE OF : 56 REPORT #: [id number] PHYSICIAN: MARIA DEE MD PCP: BREANNA DELACRUZ MD REPORT IS CONFIDENTIAL AND NOT TO BE RELEASED WITHOUT AUTHORIZATION [facility] [address] [place], [place] [address] Signed I discussed candidly with the patient the rationale for a feeding tube, and she actually is interested in proceeding with it. She is lucid at this point. The risks of bleeding, infection, need for open procedure, and so forth were reviewed. She understands to the extent she can from what I can tell. PLAN: We will affirm with Dr. Smith a consideration for the feeding tube preferred by percutaneous endoscopic gastrostomy approach. Following the placement of tube of course, enteral feeds may be given and with less (but not total) chance of aspiration and complications associated with it, including pneumonia. MD GUERDA Phillip/ZOEYL /[id number] cc: MD Breanna Singh MD Cynthia Rasch, MD Brian Piteo, MD Copies: LUPE JOSEPH MD, CYNTHIA MD PITEO, BRIAN DO ~ Electronically Signed By: MARIA DEE MD 04/25/20 1120 PATIENT NAME: MARIA EVANS CONSULTATION DATE OF : 56 REPORT #: [id number] PHYSICIAN: MARIA DEE MD PCP: BREANNA DELACRUZ MD REPORT IS CONFIDENTIAL AND NOT TO BE RELEASED WITHOUT AUTHORIZATION
--- NOTE | 2020-04-25 11:20 | OR ---
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 PROCEDURES: 1. Esophagogastroduodenoscopy. 2. Percutaneous endoscopic gastrostomy placement. ANESTHESIA: Intravenous sedation propofol infusion; Poppy Ines, RHEUMATOLOGY NURSE, and local 1% lidocaine. INDICATION: This 59-year-old white woman, was admitted on April 19, [address] Joseph, subsequently seen by Dr. Ozuna and recently by Dr. Smith, the hospitalist team. She was admitted with a 60-pound weight loss, delirium, and other problems. The patient was also noted to have a left lower lung pneumonia. She was thought to have a dilated esophagus on CT scan that was performed. An upper GI was performed, which showed no evidence of esophageal obstruction. The upper GI did demonstrate, however, impressive complete aspiration of swallowed barium. She appears quite dysfunctional as regard to swallowing mechanism. Recommendation has been made for a PEG tube for enteral nutrition resuscitation. The patient's mental status has improved over the past several days, and we discussed the risks of bleeding, infection, misplacement, dislodgement, and other unforeseen complications and understand these risks as well as she can and she wishes to proceed. Of note, her next of kin declines any involvement in her management (son), who has had little to do with her since 1995 from my evaluation. FINDINGS: There are no contraindications to PEG tube placement found on endoscopy or physical examination. She may have a small hiatal hernia, but it was not profound in the stomach and duodenum were normal. There was no sign of gastric outlet obstruction or primary Electronically Signed By: MARIA DEE MD 04/25/20 4610 PATIENT NAME: MARIA EVANS OPERATIVE REPORT DATE OF : 56 REPORT #: [id number] PHYSICIAN: MARIA DEE MD PCP: GINO CARCAMO MD REPORT IS CONFIDENTIAL AND NOT TO BE RELEASED WITHOUT AUTHORIZATION [facility] [address], [place] [address] Signed pathology of the stomach proper. The tube was placed without problem and appears to be functioning well. DESCRIPTION OF PROCEDURE: The patient was brought to the endoscopy suite and placed in the supine position. Preoperative antibiotic Ancef was given 2 g. Intravenous sedation was administered with propofol infusional technique with full cardiopulmonary monitoring. A bite block was placed and an Olympus video upper endoscope passed in the hypopharynx and the vocal cords appeared normal. The scope was advanced to the esophagus without problem, throughout its length, it was normal. The stomach was entered. There was no sign of gastric juices particularly. Rugal folds were somewhat atrophic, but present. The antrum was normal. Pylorus was normal. Scope passed through it into the duodenum, which was normal. The scope was withdrawn. Retroflexed view was undertaken showing no sign of disqualifying hiatal hernia though there was a poor flap valve generally. The scope was withdrawn a bit and abdominal examination showed transillumination through the epigastric area. She has a very thin body habitus at this point, easy transillumination was noted. Impression on the abdominal wall inferior to the left of the xiphoid process showed a direct impression on the antrum of the stomach as expected. The area was then prepared with a chlorhexidine solution and draped sterilely. A 1% lidocaine injected locally. The needle with a [employer] feeding tube kit was passed under direct visualization into the stomach, tenting the mucosa and passing the needle into the stomach itself. The obturator was removed. The flexible wire from the kit was passed through the needle and using a snare, the tip of the wire was grasped. The needle was then removed fully. This endoscope and the snare and wire were then withdrawn carefully. The site where the wire emanated from the abdominal wall was incised with an #11 blade and the PEG tube passed over the wire and directed down the pharynx with all due care ultimately delivering the narrow tip of the catheter through the abdominal wall. The catheter was then withdrawn gently through the esophagus at the GE junction and so forth as expected and snugly, but not tight to the abdominal wall. The wire was then removed. The endoscope was reintroduced and appeared to be well positioned in the junction between the body and antrum of the stomach, a bit more pressure was applied, but not so much as to cause necrosis. The flange was then applied to the device and it was secured to the device with a figueroa 0 nylon suture. The catheter was cut to the appropriate length. The applied as was the cap. Plain gauze was then applied to the operative site. The enclosed Betadine ointment was not used as the patient is considered to have an iodine allergy. Two OpSite adhesive dressings were applied to as Electronically Signed By: MARIA DEE MD 04/25/20 1120 PATIENT NAME: JEANINEKIRTI BERMUDEZSCHUYLER ELENA OPERATIVE REPORT DATE OF : 56 REPORT #: [id number] PHYSICIAN: MARIA DEE MD PCP: GINO CARCAMO MD REPORT IS CONFIDENTIAL AND NOT TO BE RELEASED WITHOUT AUTHORIZATION [address] [place] [address] Signed to avoid immediate dislodgement. The patient tolerated procedure well and was taken to the recovery room in good condition. BLOOD LOSS: Minimal. COMPLICATIONS: None. MD GUERDA Phillip/MODL /[id number] cc: MD Zakia Singh MD Brian Piteo, MD Copies: LUPE JOSEPH MD, CYNTHIA MD PITEO, BRIAN DO ~ Electronically Signed By: MARIA DEE MD 04/25/20 1120 PATIENT NAME: MARIA EVANS OPERATIVE REPORT DATE OF : 56 REPORT #: [id number] PHYSICIAN: MARIA DEE MD PCP: GINO CARCAMO MD REPORT IS CONFIDENTIAL AND NOT TO BE RELEASED WITHOUT AUTHORIZATION
[2020-04-27] MEDS ORDERED: ISOSORBIDE DINI10 MG PT (14:29)
[2020-04-27] MEDS ORDERED: ASPIRIN81 MG PT (14:31)
[2020-04-27] MEDS ORDERED: GABAPENTIN300 MG/6 M PT (14:33)
== END 2020-04-27 18:15 | DRG 640 ==
LOC: ED 16:21 → MS 16:23
PROVIDERS: ADMIT Student in an Organized Health Care Education/Training Program; ATTEND Student in an Organized Health Care Education/Training Program
PROC: 0DH63UZ Insertion of Feeding Device into Stomach, Percutaneous Approach (ICD-10-PCS; principal; 2020-04-25)
DX: E86.0 Dehydration (principal); G93.41 Metabolic encephalopathy; N30.00 Acute cystitis without hematuria; E46 Unspecified protein-calorie malnutrition; Z68.1 Body mass index [BMI] 19.9 or less, adult; Z20.828 Contact with and (suspected) exposure to other viral communicable diseases; B96.20 Unspecified Escherichia coli [E. coli] as the cause of diseases classified elsewhere; E78.5 Hyperlipidemia, unspecified; K22.8 Other specified diseases of esophagus; D63.8 Anemia in other chronic diseases classified elsewhere; I25.10 Atherosclerotic heart disease of native coronary artery without angina pectoris; J45.909 Unspecified asthma, uncomplicated; K21.9 Gastro-esophageal reflux disease without esophagitis; E11.649 Type 2 diabetes mellitus with hypoglycemia without coma; G40.909 Epilepsy, unspecified, not intractable, without status epilepticus; F32.9 Major depressive disorder, single episode, unspecified; R13.12 Dysphagia, oropharyngeal phase; R33.9 Retention of urine, unspecified; E83.42 Hypomagnesemia; E87.6 Hypokalemia; L89.150 Pressure ulcer of sacral region, unstageable; L89.899 Pressure ulcer of other site, unspecified stage; Z74.01 Bed confinement status; Z87.820 Personal history of traumatic brain injury; Z87.891 Personal history of nicotine dependence; Z88.2 Allergy status to sulfonamides; Z88.8 Allergy status to other drugs, medicaments and biological substances; Z88.1 Allergy status to other antibiotic agents; Z88.5 Allergy status to narcotic agent; Z79.899 Other long term (current) drug therapy; Z79.82 Long term (current) use of aspirin
CPT/HCPCS: 36415; 71250; 74176; 74230; 80048; 80053; 81001; 82247; 82465; 82607; 82728; 83540; 83605; 83615; 83690; 83735; 84100; 84134; 84443; 84466; 84478; 84484; 84550; 85025; 87077; 87088; 87186; 92611; 93005; 93010; 96361; 96365; 96366; 97163; 97167; 99285-25; C9803; J0690; J0696; J1650; J1885; J1953; J2001; J2704; J3475; J3480; J7030; J7040; J7060; J7070; J7121